=== PATIENT | female | born 1960 | race Caucasian/White ===

== ENCOUNTER 2017-05-27 18:57 | Emergency (ER) | payer OTHER, MEDICAID ==
--- NOTE | 2017-05-27 19:28 | UC ---
Skin Complaint HPI - HPI Summary HPI Summary: Pt presents with c/o "red spots" on face that began after using tanning gaines. Pt reports that "red dots" are slightly tender then will eventually erupt into "pitted scabs". - History of Current Complaint Stated Complaint: SKIN COMPLAINT Hx Obtained From: Patient Hx Last Menstrual Period: N/A ?: No Onset/Duration: Gradual Onset, Lasting Days Skin Exposure Onset/Duration: Days Ago Timing: Constant Onset Severity: Mild Current Severity: Mild Location: Face Character: Redness, Raised Aggravating: Touch Alleviating: Nothing Associated Signs & Symptoms: Positive: Tenderness Related History: Possible Reaction to: Environmental Exposure - Allergy/Home Medications Allergies/Adverse Reactions: Allergies Allergy/AdvReac Type Severity Reaction Status Date / Time Amoxicillin [From Augmentin] AdvReac GI Verified 05/27/17 19:14 Clavulanic Acid AdvReac GI Verified 05/27/17 19:14 [From Augmentin] Review of Systems Constitutional: Negative Skin: Rash Eyes: Negative ENT: Negative Respiratory: Negative Cardiovascular: Negative Gastrointestinal: Negative Genitourinary: Negative Motor: Negative Neurovascular: Negative Musculoskeletal: Negative Neurological: Negative Psychological: Negative All Other Systems Reviewed And Are Negative: Yes PMH/Surg Hx/FS Hx/Imm Hx Previously Healthy: Yes - Surgical History Surgical History: Yes Surgery Procedure, Year, and Place: hysterectomy. tonsillectomy. deviated septum. ectopic 1982--contracted Hep B from blood transfusion. hernia repair - Family History Known Family History: Positive: Cardiac Disease - Social History Alcohol Use: None Substance Use Type: None Smoking Status (MU): Never Smoked Tobacco Physical Exam Triage Information Reviewed: Yes Appearance: Well-Appearing Vital Signs: Initial Vital Signs Temp 98.6 F 05/27/17 19:15 Pulse 64 05/27/17 19:15 Resp 16 05/27/17 19:15 BP 102/69 05/27/17 19:15 Pulse Ox 100 05/27/17 19:15 Vital Signs Reviewed: Yes Eye Exam: Normal Neck exam: Normal Respiratory Exam: Normal Respiratory: Positive: No respiratory distress Musculoskeletal Exam: Normal Neurological Exam: Normal Psychological Exam: Normal Skin Exam: Other - multiple,scattered, erythematous, raised "bumps, in various stages of healing. central depression noted in multiple scabs. Course/Dx - Differential Diagnoses - Skin Complaint Differential Diagnoses: Contact Dermatitis, MRSA - folliculitis - Diagnoses Provider Diagnoses: folliculitis. MRSA? Discharge - Discharge Plan Condition: Stable Disposition: HOME Prescriptions: Sulfamethox/Trimethoprim DS* [Bactrim DS 800/160 TAB*] 1 tab PO Q12H #14 tab Patient Education Materials: Folliculitis (ED) Referrals: Arabella Renteria MD [Primary Care Provider] - If Needed
[2017-05-27 19:45] VITALS: BP 102/69
== END 2017-05-27 19:35 | disposition home or self-care (01) ==
LOC: UCCORT 18:57
DX: L73.9 Follicular disorder, unspecified (principal)
CPT/HCPCS: 99212; G0463

== ENCOUNTER 2017-12-14 18:55 | Emergency (ER) | payer MEDICAID, OTHER ==
[2017-12-14 21:23] VITALS: BP 120/69
--- NOTE | 2017-12-14 21:38 | ED ---
Adult Trauma - HPI Summary HPI Summary: 57 yr old female with the complaint of right sided chest wall pain. The patient fell four days ago and complains of pain to the right ribs,worse with movement, jarring her and deep breath. She states she fell against a railing with her crock pot. No other complaints. - History of Current Complaint Chief Complaint: UCTrauma Stated Complaint: RIB PAIN PT FELL 3 DAYS AGO Time Seen by Provider: 12/14/17 21:12 Hx Last Menstrual Period: N/A Pain Intensity: 6 - Allergy/Home Medications Allergies/Adverse Reactions: Allergies Allergy/AdvReac Type Severity Reaction Status Date / Time Amoxicillin [From Augmentin] AdvReac GI Verified 12/14/17 21:11 Clavulanic Acid AdvReac GI Verified 12/14/17 21:11 [From Augmentin] Home Medications: Home Medications Acetaminophen [Acetaminophen Extra Stren] 1,000 mg PO Q6H PRN 12/14/17 [History Confirmed 12/14/17] PMH/Surg Hx/FS Hx/Imm Hx Previously Healthy: Yes - Surgical History Surgery Procedure, Year, and Place: hysterectomy. tonsillectomy. deviated septum. ectopic 1982--contracted Hep B from blood transfusion. hernia repair Infectious Disease History: No Infectious Disease History: Reports: Hx Hepatitis - Hepatits B--blood transfusion Denies: Hx Clostridium Difficile, Hx Human Immunodeficiency Virus (HIV), Hx of Known/Suspected MRSA, Hx Shingles, Hx Tuberculosis, Hx Known/Suspected VRE, Hx Known/Suspected VRSA, History Other Infectious Disease, Traveled Outside the [place] in Last 30 Days - Family History Known Family History: Positive: None, Cardiac Disease - Social History Alcohol Use: None Substance Use Type: Reports: None Smoking Status (MU): Never Smoked Tobacco Review of Systems Constitutional: Negative Positive: Shortness Of Breath Positive: Other - right chest wall pain after falling All Other Systems Reviewed And Are Negative: Yes Physical Exam Triage Information Reviewed: Yes Vital Signs On Initial Exam: Initial Vitals Temp Pulse Resp BP Pulse Ox 98.5 F 77 16 120/69 100 12/14/17 21:14 12/14/17 21:14 12/14/17 21:14 12/14/17 21:14 12/14/17 21:14 Vital Signs Reviewed: Yes Appearance: Positive: Well-Appearing, No Pain Distress Skin: Positive: Warm, Skin Color Reflects Adequate Perfusion Head/Face: Positive: Normal Head/Face Inspection Eyes: Positive: EOMI Neck: Positive: Supple, Nontender Respiratory/Lung Sounds: Positive: Clear to Auscultation, Breath Sounds Present , Other - tender over the right chest wall. Cardiovascular: Positive: RRR. Negative: Murmur Abdomen Description: Positive: Nontender Bowel Sounds: Positive: Present Musculoskeletal: Positive: Normal, Strength/ROM Intact Neurological: Positive: Sensory/Motor Intact, Alert, Oriented to Person Place, Time, CN Intact II-III Psychiatric: Positive: Normal - Kincaid Coma Scale Best Eye Response: 4 - Spontaneous Best Motor Response: 6 - Obeys Commands Best Verbal Response: 5 - Oriented Coma Scale Total: 15 Diagnostics - Vital Signs Vital Signs Temp Pulse Resp BP Pulse Ox 12/14/17 21:14 98.5 F 77 16 120/69 100 - Laboratory Lab Statement: Any lab studies that have been ordered have been reviewed, and results considered in the medical decision making process. - Radiology chest/right ribs Xray Interpretation: No Acute Changes - Final report reviewed Radiology Interpretation Completed By: Radiologist Adult Trauma Course/Dx - Course Course Of Treatment: 57 yr old with chest wall injury. Plan DC home in stable condition. incentive spirometer. - Diagnoses Provider Diagnoses: Chest wall contusion Discharge - Discharge Plan Condition: Good Disposition: HOME Patient Education Materials: Contusion in Adults (ED), Chest Wall Pain (ED) Referrals: José Luis Tyson MD [Primary Care Provider] - 2 Days
--- NOTE | 2017-12-14 21:55 | RAD ---
Indication: Chest pain. 2 views of the chest including dual energy PA views demonstrates no mediastinal shift. Heart is of normal size and configuration. Lungs are clear. IMPRESSION: No active cardiopulmonary disease is noted.
--- NOTE | 2017-12-14 21:57 | RAD ---
Indication: Chest pain. 3 views of the right ribs demonstrates no fracture. No other bone or joint abnormality is noted. IMPRESSION: No fracture of the right ribs is noted.
== END 2017-12-14 22:18 | disposition home or self-care (01) ==
LOC: UCCORT 18:55
DX: S20.211A Contusion of right front wall of thorax, initial encounter (principal); W18.09XA Striking against other object with subsequent fall, initial encounter; Y93.89 Activity, other specified; Y92.9 Unspecified place or not applicable; R06.02 Shortness of breath; Z88.1 Allergy status to other antibiotic agents; Z90.710 Acquired absence of both cervix and uterus; Z90.89 Acquired absence of other organs
CPT/HCPCS: 71046; 99211; G0463

== ENCOUNTER 2018-06-24 11:13 | Emergency (ER) | payer OTHER ==
[2018-06-24 11:55] VITALS: BP 104/72
--- NOTE | 2018-06-24 13:23 | RAD ---
Indication: Right flank pain. CT of the abdomen and pelvis was performed without oral or IV contrast administration. Coronal and sagittal reconstructed. Coronal and sagittal reconstructed images were obtained. The lung bases demonstrate no pleural fluid, nodules or masses. Heart is of normal size without pericardial effusion. 3 mm pleural-based density is noted in the left lung base likely of no clinical significance. No alveolar consolidation is noted. The heart demonstrates no pericardial effusion. The liver is normal in size. There are no focal lesions or intrahepatic duct dilatation noted. This low density lesion in the periphery of the right lobe measuring up to 10 mm likely representing a cyst. No intrahepatic duct dilatation is noted. The spleen is normal in size. The pancreas demonstrates no mass or pancreatic duct dilatation. Common duct is not dilated. The gallbladder demonstrates no calcified gallstones. No pericholecystic fluid or wall thickening is identified. The common duct is not dilated. No adrenal masses are noted. The kidneys demonstrate no hydronephrosis in either kidney. No evidence of hydroureter is noted. No evidence of ureteral calculi is noted. The urinary bladder is unremarkable. The aorta and inferior vena cava are unremarkable. No retroperitoneal lymphadenopathy is noted. No dilated loops of bowel are noted. No hernias are noted. The appendix is visualized and appears to be within normal limits. The bony structures are otherwise unremarkable. Patient appears to be status post hysterectomy. IMPRESSION: No definite obstructive uropathy is noted. No hydronephrosis is noted in either kidney. Likely hepatic cyst. Patient is status post hysterectomy. Normal appendix.
--- NOTE | 2018-06-24 13:41 | UC ---
Complaint Female HPI - HPI Summary HPI Summary: urinary pain burning urgency and frequency for 1 week. Also has pain in RUQ that is not related - History Of Current Complaint Chief Complaint: UCGI Stated Complaint: URINARY Time Seen by Provider: 06/24/18 12:23 Hx Obtained From: Patient Hx Last Menstrual Period: N/A ?: No Onset/Duration: Lasting Days - 7 days urinary pain and burning, Other - always has the RUQ pain Timing: Constant Pain Intensity: 3 Pain Scale Used: 0-10 Numeric Character: Burning Aggravating Factor(s): Urination Associated Signs And Symptoms: Positive: Negative - Allergies/Home Medications Allergies/Adverse Reactions: Allergies Allergy/AdvReac Type Severity Reaction Status Date / Time clavulanic acid AdvReac Vomiting Verified 06/24/18 11:51 Home Medications: Home Medications Vitamin THERAPEUTIC TAB* [Theragran TAB*] 1 tab PO EVERY OTHER DAY 06/24/18 [ History Confirmed 06/24/18] PMH/Surg Hx/FS Hx/Imm Hx Previously Healthy: Yes - Surgical History Surgical History: Yes Surgery Procedure, Year, and Place: hysterectomy. tonsillectomy. deviated septum. ectopic 1982--contracted Hep B from blood transfusion. hernia repair - Family History Known Family History: Positive: None, Cardiac Disease - Social History Occupation: Employed Full-time Lives: With Family Alcohol Use: None Substance Use Type: None Smoking Status (MU): Never Smoked Tobacco Review of Systems Constitutional: Negative Skin: Negative Eyes: Negative ENT: Negative Respiratory: Negative Cardiovascular: Negative Gastrointestinal: Abdominal Pain - RUQ (Hep B in the past) Genitourinary: Negative, Dysuria, Frequency, Urgency Motor: Negative Neurovascular: Negative Musculoskeletal: Negative Neurological: Negative Psychological: Negative Is Patient Immunocompromised?: No All Other Systems Reviewed And Are Negative: Yes Physical Exam Triage Information Reviewed: Yes Appearance: Well-Appearing, No Pain Distress, Well-Nourished Vital Signs: Initial Vital Signs Temp 98.3 F 06/24/18 11:45 Pulse 66 06/24/18 11:45 Resp 16 06/24/18 11:45 BP 104/72 06/24/18 11:45 Pulse Ox 100 06/24/18 11:45 Vital Signs Reviewed: Yes Eye Exam: Normal Eyes: Positive: Conjunctiva Clear ENT Exam: Normal ENT: Positive: Normal ENT inspection, Hearing grossly normal. Negative: Trismus , Muffled voice, Hoarse voice Dental Exam: Normal Neck exam: Normal Neck: Positive: Supple, Nontender Respiratory Exam: Normal Respiratory: Positive: Chest non-tender, No respiratory distress Cardiovascular Exam: Normal Cardiovascular: Positive: RRR, Pulses Normal, Brisk Capillary Refill Abdominal Exam: Normal Abdomen Description: Positive: No Organomegaly, Soft, Other: - tender RUQ. Negative: CVA Tenderness (R), CVA Tenderness (L), Distended, Guarding, McBurney' s Point Tenderness, Peritoneal Signs Bowel Sounds: Positive: Present Musculoskeletal Exam: Normal Musculoskeletal: Positive: Strength Intact, ROM Intact, No Edema Neurological Exam: Normal Neurological: Positive: Alert, Muscle Tone Normal Psychological Exam: Normal Skin Exam: Normal Complaint Female Dx - Course Course Of Treatment: macrobid, follow chronic ruq pain with Dr. Pang - Differential Dx/Diagnosis Provider Diagnoses: UTI, Chronic RUQ pain Discharge - Sign-Out/Discharge Documenting (check all that apply): Patient Departure - Discharge Plan Condition: Stable Disposition: HOME Prescriptions: Nitrofurantoin Monohyd/M-Cryst [Macrobid 100 mg Capsule] 100 mg PO BID #10 cap Patient Education Materials: Urinary Tract Infection in Women (ED), Hematuria ( ED), Acute Abdominal Pain (ED) Referrals: José Luis Pang MD [Primary Care Provider] - 1 Week - Billing Disposition and Condition Condition: STABLE Disposition: Home Attestation Statement User Type: Provider - I was available for consult. This patient was seen by the BRAD. The patient was not presented to, seen by, or examined by me. -Star
== END 2018-06-24 13:45 | disposition home or self-care (01) ==
LOC: UCCORT 11:13
DX: N39.0 Urinary tract infection, site not specified (principal); G89.29 Other chronic pain; R10.13 Epigastric pain; Z88.0 Allergy status to penicillin
CPT/HCPCS: 74176; 81003; 87086; 99212; G0463

== ENCOUNTER 2018-08-24 20:42 | Emergency (ER) | payer OTHER ==
[2018-08-24 21:16] VITALS: BP 105/70
--- NOTE | 2018-08-24 22:00 | UC ---
Lower Extremity/Ankle HPI - HPI Summary HPI Summary: Pt c/o left foot pain that began 4 days. ago. Pt denies injury. 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 Pt reports that as a child she fracture left 5th toe and now position of toe is "tucked under 4th toe". - History of Current Complaint Chief Complaint: UCLowerExtremity Stated Complaint: LEFT FOOT PAIN Time Seen by Provider: 08/24/18 21:38 Hx Obtained From: Patient Hx Last Menstrual Period: N/A ?: No Onset/Duration: Gradual Onset, Lasting Days, Still Present Severity Initially: Mild Severity Currently: Moderate Pain Intensity: 6 Aggravating Factor(s): Standing, Ambulation Alleviating Factor(s): Rest, Elevation Able to Bear Weight: Yes - Risk Factors Gout Risk Factors: Age Over 40 DVT Risk Factors: Negative Septic Arthritis Risk Factor: Negative - Allergies/Home Medications Allergies/Adverse Reactions: Allergies Allergy/AdvReac Type Severity Reaction Status Date / Time clavulanic acid AdvReac Vomiting Verified 08/24/18 21:08 Home Medications: Home Medications Ibuprofen TAB* [Advil TAB*] 400 mg PO Q6H PRN 08/24/18 [History Confirmed ] PMH/Surg Hx/FS Hx/Imm Hx Previously Healthy: Yes - Surgical History Surgical History: Yes Surgery Procedure, Year, and Place: hysterectomy. tonsillectomy. deviated septum. ectopic 1982--contracted Hep B from blood transfusion. hernia repair - Family History Known Family History: Positive: None, Cardiac Disease - Social History Occupation: Employed Full-time Lives: With Family Alcohol Use: None Substance Use Type: None Smoking Status (MU): Never Smoked Tobacco Have You Smoked in the Last Year: No Review of Systems Constitutional: Negative Skin: Negative Eyes: Negative ENT: Negative Respiratory: Negative Cardiovascular: Negative Gastrointestinal: Negative Genitourinary: Negative Motor: Negative Neurovascular: Negative Musculoskeletal: Arthralgia - left foot 4th and 5th metatarsal Neurological: Negative Psychological: Negative Is Patient Immunocompromised?: No All Other Systems Reviewed And Are Negative: Yes Physical Exam Triage Information Reviewed: Yes Appearance: Well-Appearing Vital Signs: Initial Vital Signs Temp 97.9 F 08/24/18 21:09 Pulse 67 08/24/18 21:09 Resp 18 08/24/18 21:09 BP 105/70 08/24/18 21:09 Pulse Ox 99 08/24/18 21:09 Vital Signs Reviewed: Yes Eye Exam: Normal ENT Exam: Normal ENT: Positive: Hearing grossly normal Dental Exam: Normal Neck exam: Normal Respiratory: Positive: No respiratory distress Musculoskeletal: Positive: Other: - pain at mid 4th and 5th metatarsal. Neurological Exam: Normal Psychological Exam: Normal Skin Exam: Normal Lower Extremity Course/Dx - Differential Dx/Diagnosis Differential Diagnosis/HQI/PQRI: Fracture (Closed), Tendonitis Provider Diagnoses: left foot pain Discharge - Sign-Out/Discharge Documenting (check all that apply): Patient Departure All imaging exams completed and their final reports reviewed: No - Discharge Plan Condition: Stable Disposition: HOME Patient Education Materials: Arthralgia (ED) Referrals: José Luis Tyson MD [Primary Care Provider] - If Needed Hal Grullon MD [Medical Doctor] - If Needed Boby Garcias DPM [Doctor of Podiatric Medicine] - If Needed - Billing Disposition and Condition Condition: STABLE Disposition: Home
--- NOTE | 2018-08-25 07:54 | RAD ---
HISTORY: left foot pain X 4 days, COMPARISONS: None VIEWS: 3 , Frontal, lateral, and oblique views of the left foot FINDINGS: BONE DENSITY: Normal. BONES: There is no displaced fracture. JOINTS: There is osteoarthritis of the first MTP joint. ALIGNMENT: There is no dislocation. SOFT TISSUES: Unremarkable. OTHER FINDINGS: None. IMPRESSION: NO ACUTE OSSEOUS INJURY. IF SYMPTOMS PERSIST, RECOMMEND REPEAT IMAGING. R1
--- NOTE | 2018-08-25 08:42 | UC ---
- Progress Note Progress Note: Patient Name: ZARI LOCKWOOD Medical Record#: [id number] Ordering Physician: Perla Perez NP Acct.#: [id number] : 1960 Age: 57 Sex: F Location: [facility] Exam Date: 08/24/182142 ADM Status: [facility] ER Order Information: FOOT LEFT 3+ VWS Accession Number: [id number] CPT: 97135 HISTORY: left foot pain X 4 days, COMPARISONS: None VIEWS: 3 , Frontal, lateral, and oblique views of the left foot FINDINGS: BONE DENSITY: Normal. BONES: There is no displaced fracture. JOINTS: There is osteoarthritis of the first MTP joint. ALIGNMENT: There is no dislocation. SOFT TISSUES: Unremarkable. OTHER FINDINGS: None. IMPRESSION: NO ACUTE OSSEOUS INJURY. IF SYMPTOMS PERSIST, RECOMMEND REPEAT IMAGING. R1 <Electronically signed by José Luis Pagan MD in OV> 08/25/18750 Dictated By: José Luis Pagan MD Dictated Date/Time: 08/25/18750 Transcribed Date/Time: 08/25/18749 Copy to: CC:José Luis Tyson MD; Perla Perez NP; Coty Heard MD Imaging - [facility] Imaging - [facility] Urgent [facility] [place] [address] [place] [address] ph ([phone] ph ([phone] ph ([phone]) This report is only to be considered final once signed by the Provider(s) as displayed in the "<Electronically Signed by >" field (s). Absence of a signature indicates the report is in a draft status and still needs to be finalized. In the event this document was created by someone other than the signing Provider, the individual initiating the document will be listed in the "Entered by:" or "Dictated by:" celestin. 1 of 1 Discharge - Sign-Out/Discharge Documenting (check all that apply): Post-Discharge Follow Up All imaging exams completed and their final reports reviewed: Yes - Discharge Plan Condition: Stable Disposition: HOME Patient Education Materials: Arthralgia (ED) Referrals: José Luis Tyson MD [Primary Care Provider] - If Needed Hal Grullon MD [Medical Doctor] - If Needed Boby Garcias DPM [Doctor of Podiatric Medicine] - If Needed - Billing Disposition and Condition Condition: STABLE Disposition: Home
== END 2018-08-24 22:05 | disposition home or self-care (01) ==
LOC: UCCORT 20:42
DX: M79.672 Pain in left foot (principal); Z88.8 Allergy status to other drugs, medicaments and biological substances
CPT/HCPCS: 99211; G0463

== ENCOUNTER 2019-03-18 13:39 | Emergency (ER) | payer MEDICAID, OTHER ==
[2019-03-18 15:28] VITALS: BP 99/65
--- NOTE | 2019-03-18 15:33 | UC ---
UC General HPI - HPI Summary HPI Summary: Pt c/o generalized body aches, intermittent cognitive impairment X 1 month. Pt has known hx of tick bites and is requesting testing for lyme disease. Also c/o intermittent left eye "blurriness" - History of Current Complaint Chief Complaint: UCGeneralIllness Stated Complaint: MUSCLE ACHES Time Seen by Provider: 03/18/19 15:21 Hx Obtained From: Patient Hx Last Menstrual Period: N/A Onset/Duration: Gradual Onset, Lasting Weeks, Still Present Timing: Intermittent Episodes Lasting: - body and joint achesof cognitive impairment per pt. Onset Severity: Mild Current Severity: Mild Pain Intensity: 3 Associated Signs & Symptoms: Positive: Other - tick bites - Allergy/Home Medications Allergies/Adverse Reactions: Allergies Allergy/AdvReac Type Severity Reaction Status Date / Time clavulanic acid AdvReac Vomiting Verified 03/18/19 15:18 PMH/Surg Hx/FS Hx/Imm Hx Previously Healthy: Yes - Surgical History Surgical History: Yes Surgery Procedure, Year, and Place: hysterectomy. tonsillectomy. deviated septum. ectopic 1982--contracted Hep B from blood transfusion. hernia repair - Family History Known Family History: Positive: None, Cardiac Disease - Social History Occupation: Employed Full-time Lives: With Family Alcohol Use: None Substance Use Type: None Smoking Status (MU): Former Smoker Have You Smoked in the Last Year: No - Immunization History Vaccination Up to Date: Yes Review of Systems All Other Systems Reviewed And Are Negative: Yes Constitutional: Positive: Fatigue Skin: Positive: Negative Eyes: Positive: Blurred Vision - right eye ENT: Positive: Negative Respiratory: Positive: Negative Cardiovascular: Positive: Negative Gastrointestinal: Positive: Negative Genitourinary: Positive: Negative Motor: Positive: Negative Neurovascular: Positive: Negative Musculoskeletal: Positive: Arthralgia, Myalgia Neurological: Positive: Paresthesia - intermittent Psychological: Positive: Negative Is Patient Immunocompromised?: No Physical Exam Triage Information Reviewed: Yes Appearance: Well-Appearing Vital Signs: Initial Vital Signs Temp 97.2 F 03/18/19 15:20 Pulse 66 03/18/19 15:20 Resp 18 03/18/19 15:20 BP 99/65 03/18/19 15:20 Pulse Ox 100 03/18/19 15:20 Vital Signs Reviewed: Yes Eye Exam: Normal ENT Exam: Normal Dental Exam: Normal Neck exam: Normal Respiratory Exam: Normal Cardiovascular Exam: Normal Musculoskeletal Exam: Normal Neurological Exam: Normal Psychological Exam: Normal Skin Exam: Normal Course/Dx - Diagnoses Provider Diagnosis: Myalgia Discharge - Sign-Out/Discharge Documenting (check all that apply): Patient Departure All imaging exams completed and their final reports reviewed: No Studies - Discharge Plan Condition: Stable Disposition: HOME Patient Education Materials: Musculoskeletal Pain (ED) Referrals: Oleg Zamudio MD [Primary Care Provider] - As Soon As Possible - Billing Disposition and Condition Condition: STABLE Disposition: Home
[2019-03-19 11:33] LABS: ABS Basophils 0 10^3/ul (0-0.2); ABS Eosinophils 0.1 10^3/ul (0-0.6); ABS Lymphocytes 2.1 10^3/ul (1.0-4.8); ABS Monocytes 0.5 10^3/ul (0-0.8); ABS Neutrophils 2.6 10^3/ul (1.5-7.7); ABS Nucleated RBC 0 10^3/ul; Eosinophil % 2.6 %; Hematocrit 40 % (33-41); Hemoglobin 13.2 g/dL (12.0-16.0); Lymphocyte % 38.7 %; Mean Corpuscular HGB Conc 33 g/dL (31-36); Mean Corpuscular Hemoglobin 29 pg (27-31); Mean Corpuscular Volume 88 fL (80-97); Mean Platelet Volume 9.3 fL (7.4-10.4); Nucleated Red Blood Cells % 0.8; Platelet Count 239 10^3/uL (150-450); Red Blood Count 4.53 10^6 /uL (3.70-4.87); Red Cell Distribution Width 13 % (10.5-15); White Blood Count 5.3 10^3/uL (3.5-10.8)
== END 2019-03-18 15:50 | disposition home or self-care (01) ==
LOC: UCCORT 13:39
DX: M79.10 Myalgia, unspecified site (principal); R53.83 Other fatigue; H53.8 Other visual disturbances; R20.2 Paresthesia of skin; Z88.1 Allergy status to other antibiotic agents; Z87.891 Personal history of nicotine dependence
CPT/HCPCS: 36415; 85025; 87476; 87798; 99211; G0463

== ENCOUNTER 2019-07-02 08:50 | Day surgery (SDC) | payer MEDICAID, OTHER ==
[~2019-07-02 08:50] MED LIST: Buffered Lidocaine 1% SYRIN* 1 ML/SYRINGE INTRADERM ONE; Lactated Ringers 1000 ML Bag* 1,000 ML IV SCH; Sodium Citrate/Citric Acid* 15 ML UDC PO ONE
[2019-07-02] MEDS ORDERED: Sodium Citrate/Citric Acid* 15 ML UDC ONE (09:59)
[2019-07-02] MEDS ORDERED: Buffered Lidocaine 1% SYRIN* 1 ML/SYRINGE INTRADERM ONE (09:59)
[2019-07-02] MEDS ORDERED: Bupivacaine 0.25% SDV PF* 10 ML VIAL INJ ONE (10:48)
[2019-07-02] MEDS ORDERED: Midazolam* 1 MG/ML 5 ML VIAL (5 MG) ONE (11:13)
[2019-07-02] MEDS ORDERED: fentaNYL* 50 MCG/ML 2 ML VIAL (100 MCG VIAL) ONE (11:13)
[2019-07-02 12:21] VITALS: BP 95/65
--- NOTE | 2019-07-02 14:25 | OP ---
DATE OF OPERATION: 07/02/19 - SDS DATE OF : 64 SURGEON: Jimmy Oliva MD. CORRECTIONAL CASE MANAGER: PANFILO Maynard. ANESTHESIOLOGIST: Dr. Godinez. ANESTHESIA: Local MAC. PRE-OP DIAGNOSIS: Right ring finger soft tissue mass. POST-OP DIAGNOSIS: Right ring finger soft tissue mass. OPERATIVE PROCEDURE: Excision of right ring finger soft tissue mass. INDICATIONS: Daphney has a mass near the MP joint flexion crease. Symptomatically, we talked about her treatment options. She wanted to have it excised. ESTIMATED BLOOD LOSS: 1 mL. COMPLICATIONS: None. FINDINGS: See above and below. DESCRIPTION OF PROCEDURE: Daphney was seen in the preoperative holding area. The correct side, site, and procedure were identified. We came back to the operating room and the arm was prepped and draped in the usual fashion and a time-out was performed. The arm was exsanguinated with the Esmarch and the forearm tourniquet was inflated to 200 mmHg. I then made a trapezoidal-shaped incision over the mass along the midaxial line, was brought back across the MP joint flexion crease obliquely. Dissection was carried down and the digital nerve was visualized. The Ragnell retractors were placed and the nerve was protected. Full-thickness flaps were raised off the mass, which was then cut out with the 15-blade very carefully to preserve the underlying flexion tendon sheath. It was handed off as a specimen. The sheath was then cauterized with the Bovie, again taking great care not to have the Bovie anywhere near the digital nerve. The wound was then irrigated out. The skin was closed with 4-0 nylon suture. [id number]/[facility] #: [id number] MTDD
== END 2019-07-02 12:38 | disposition home or self-care (01) ==
LOC: OR 08:50
PROVIDERS: ATTEND Orthopaedic Surgery Hand Surgery
DX: M67.441 Ganglion, right hand (principal); R22.31 Localized swelling, mass and lump, right upper limb
CPT/HCPCS: 88305; A9270-GY; J2250; J3010; J3490